=== PATIENT | female | born 1995 | race African-American/Black ===

== ENCOUNTER 2020-11-06 07:20 | Emergency (ER) | payer OTHER ==
[~2020-11-06] VITALS: Ht 162.6 cm; Wt 90.7 kg
[2020-11-06 07:47] LABS: BASOPHILS 0.4 % (0.0-2.0); EOSINOPHILS 1.5 % (0.0-3.0); HEMATOCRIT 29.9 % (37.0-47.0); LYMPHOCYTES 17.3 % (24.0-44.0); MCH 28.8 pg (26.0-34.0); MCHC 33.5 g/dL (28.0-37.0); MONOCYTES 7.7 % (1.0-8.0); PLATELET COUNT 302 thou/uL (150-400); POLYS 73.1 % (36.0-66.0); RBC 3.48 mil/uL (4.20-5.00); RDW 13.3 % (10.5-14.5); WBC 13.7 thou/uL (4.0-11.0)
[2020-11-06 07:56] LABS: CREATININE 0.8 mg/dL (0.6-1.0); POTASSIUM 3.1 mmol/L (3.5-5.1)
[2020-11-06 08:02] LABS: ALBUMIN 2.9 g/dL (3.4-5.0); TOTAL BILIRUBIN 0.2 mg/dL (0.2-1.0); TOTAL PROTEIN 6.9 g/dL (6.4-8.2)
[2020-11-06 11:55] VITALS: BP 87/63
--- NOTE | 2020-11-10 18:06 | PATH ---
[facility] [place] [address] PATHOLOGY RPT PROCEDURE Name: JACOBOEDRA Room #: DEP KAY Blanco#: [id number] Admission: 11/06/20 Date of : 89 Discharge: 11/06/20 Report #: [id number] Path Case #: [id number] [facility] Accession Number: [id number] . 01 Material submitted: . product of conception - PLACENTA . 01 Clinical history: . ABDOMINAL PAIN . 02 Diagnosis: Placenta and fetus, products of conception: - Immature hydropic chorionic villi. - Moderate acute chorioamnionitis. - Marked subchorionitis. - Three vessel umbilical cord with no diagnostic abnormalities. - Male fetus with a crown to rump length of 11.6 cm and crown to heel length of 16.2 cm, approximately 16-17 weeks gestational age (gross exam only). (IUV:advertising project manager; 11/07/2020) MBR 11/07/2020 1557 Local . 02 Electronically signed: . Anjelica Osorio MD, Pathologist NPI- [id number] . 01 Gross description: . The specimen is received in formalin, labeled "Jeronimo Gardner". The specimen is additionally labeled on the requisition as, "placenta, necrotic soft conception". Received is an intact gestational sac with attached pink-esquivel spongiform tissue and decidua measuring 12.9 x 11.8 x 5.1 cm in greatest dimensions. The sac is opened to reveal a fetus. The surface intact. The membranes have a moderate amount of adherent shaggy tissue. The trivascular umbilical cord measures 12.9 cm in length by 0.5 cm in diameter and displays a part only central insertion, 2.2 cm from the closest placental margin. The umbilical cord is white-rivera to blue-rivera in appearance with minimal helical twisting, and is attached to a fetus. The maternal surface is pale esquivel and shaggy in appearance with a moderate amount of adherent blood coagulum. Sectioning reveals pink-esquivel to light esquivel cut surfaces with no grossly distinct nodules or lesions. Converting Operator sections are submitted as follows: . A1 surface vessels and proximal umbilical cord A2 umbilical cord and membrane roll A3-A5 manufacturers representative placental cross-sections. . [address] [address] PATHOLOGY RPT PROCEDURE Name: JERONIMO PIÑA Room #: DEP Francis#: [id number] Admission: 11/06/20 Date of : [birth year] Discharge: 11/06/20 Report #: [id number] Path Case #: [id number] The fetus weighs 82 g and has the following measurements: . Foot length: 2.0 cm [place]-rump: 11.6 cm [place]-heel: 16.2 cm Head circumference: 11.8 cm Eye distance: 1.0 cm. . Both hands display 5 fingers and both feet display 5 toes. The ears are centered. The mouth and anus are probe patent. The epidermis is pale esquivel to pink-esquivel and grossly unremarkable. The hard palate within the mouth is intact. The sex is determined to be female. Gross photographs are taken. Sections are not submitted. (CAA; 11/06/2020) QAC/QAC 11/06/2020 1819 Local . 02 Pathologist provided ICD-10: O41.1220, R10.9 . 02 CPT . 636886 Specimen Comment: A courtesy copy of this report has been sent to [phone] Specimen Comment: Report sent to Specimen Comment: A duplicate report has been generated due to demographic updates. Performed at: [address] [facility], [place], [place] [id number] MD Brian Aguila MD Phone: [phone] Performed at: [address] [id number] MD Anjelica Osorio MD Phone: [phone]
== END 2020-11-06 11:56 | disposition home or self-care (01) ==
LOC: EDBD 07:20 → ER 07:20
PROVIDERS: Emergency Medicine
DX: O03.9 Complete or unspecified spontaneous abortion without complication (principal)